=== PATIENT | female | born 1955 | race Caucasian/White ===

== ENCOUNTER 2021-02-05 19:37 | Emergency (ER) | payer BC ==
[2021-02-05] MEDS ORDERED: oxyCODONE ER 10 MG TAB.ER PO ONE (22:05)
[2021-02-05 22:35] LABS: POTASSIUM,K 4.2 mmol/L (3.5-5.1)
--- NOTE | 2021-02-05 23:13 | CR ---
INDICATION: Fall earlier today. COMPARISON: None. TECHNIQUE: PA chest and right ribs, 4 images. FINDINGS: No focal consolidation, pleural effusion, or pneumothorax. Calcified granuloma right midlung. Normal heart size and pulmonary vascularity. Old left rib fractures. No displaced rib fracture identified. IMPRESSION: 1. No acute cardiopulmonary findings. 2. No displaced rib fracture identified. Dictated by Afsaneh Boogie MD @ 02/05/2021 11:11:22 PM (Electronically Signed)
[2021-02-05] MEDS ORDERED: Lidocaine 5% 700 MG Patch TRDERM ONE (23:18)
[2021-02-05] MEDS ORDERED: Cephalexin 500 MG Cap PO STA (23:18)
--- NOTE | 2021-02-05 23:21 | EDM.PDOC ---
ED HPI GENERAL MEDICAL PROBLEM - General Chief Complaint: General Stated Complaint: FALL, RT SIDE KIDNEY PAIN, RECENT TRANSPLANT Time Seen by Provider: 02/05/21 21:19 - History of Present Illness INITIAL COMMENTS - FREE TEXT/NARRATIVE: CHIEF COMPLAINT(S): Fall HISTORY OF PRESENT ILLNESS: This is a 64-year-old woman with a past medical history of CKD status post renal transplant who comes to the emergency department with a chief complaint of fall. The patient states that prior to arrival she fell and hit the right side of her rib. She states that that is the side where her kidney is. She states that she is currently experiencing 10 out of 10 sharp pain on her right rib area. She denies any chest pain, shortness of breath, or cough. She denies any blood in her urine. She states that this is not exactly where her kidney is located but she is concerned that it may be have injured her kidney. She has not yet tried any pain medication therefore there is no relieving factors. The patient is having increased pain with deep breathing. She denies any recent travel, recent surgery, prior history of DVT or PE. She states this was purely a mechanical fall and denies any preceding symptoms. REVIEW OF SYSTEMS: Constitutional: Denies fever, chills. Eyes: Denies eye pain Ears, Nose, Mouth, & Throat: Denies earache Cardiovascular: Positive for right-sided chest pain Respiratory: Denies shortness of breath Gastrointestinal: Denies Nausea, vomiting, diarrhea, hematochezia. Genitourinary: Denies hematuria, dysuria Skin:Denies a rash MSK: Denies joint pain Neurological: Denies blurred vision Psychiatric: Denies depression PAST MEDICAL HISTORY: As per history of present illness and as reviewed below otherwise noncontributory. SURGICAL HISTORY: As per history of present illness and as reviewed below otherwise noncontributory. SOCIAL HISTORY: As per history of present illness and as reviewed below otherwise noncontributory. FAMILY HISTORY: As per history of present illness and as reviewed below otherwise noncontributory. EXAMINATION OF ORGAN SYSTEMS/BODY AREAS: Constitutional: Blood pressure is 156/80, heart rate 90, respiratory rate 18 with an oxygen saturation 97% on room air. Temperature 35.7 General: Middle-aged woman who does not appear to be in acute distress Psychiatric: Appropriate mood and affect. Eyes: No scleral icterus or conjunctival erythema ENMT: Moist mucous membranes. No pharyngeal erythema Cardiovascular: Regular, rate, and rhythm. No gallops, murmurs, or rubs. Bilateral upper extremity pulses symmetric and intact. No peripheral edema. No JVD. There is inferior right rib tenderness without any significant deformity or skin changes. No skin tenting. Respiratory: Lungs clear to auscultation bilaterally. No wheezes, rales, or rhonchi. Gastrointestinal: Soft, non-tender, non-distended. Normoactive bowel sounds right lower quadrant kidney can be palpated. This area is nontender. Genitourinary: No suprapubic tenderness Musculoskeletal: Normal range of motion. Skin: No lesions or abrasions. Neurological: Alert, GCS 15 MEDICAL DECISION MAKING AND COURSE IN THE ED WITH INTERPRETATION/REVIEW OF DIAGNOSTIC STUDIES: This is a 65-year-old woman with a past medical history of CKD status post renal transplant who comes to the emergency department with mechanical fall and right lower rib pain. At this time I do believe this is secondary to rib contusion versus fracture. Will obtain a rib x-ray with PA chest. Given her concern about her kidney will obtain CBC, BMP, urinalysis. We will provide the patient with a lidocaine patch and oxycodone for pain relief. We will reevaluate after imaging and work-up. The patient was amenable to this plan DDx: Rib contusion, rib fracture, soft tissue injury The radiological images were viewed by myself along with reading the report from the radiologist. Rib x-ray with PA chest does not reveal any fracture or acute cardiopulmonary process. Laboratory: CBC reveals a mild leukocytosis 11.17 otherwise unremarkable. BMP reveals elevated BUN at 24 and a creatinine of 1.5 which is around the patient's baseline. Urinalysis done revealed positive nitrite with out leukocyte esterase with 2+ bacteria. Interpretation: Positive. No evidence of hematuria. After labs I did discuss the results with the patient. I did discuss symptomatic treatment for her rib contusion at home. She was amenable to discharge at this time and had no further questions. She was given strict return precautions DISPOSITION: The patient was discharged home in stable condition. The patient will follow up with primary care physician in 3 to 5 days CONDITION: Fair PROCEDURES: None FINAL IMPRESSION(S)/DIAGNOSES: 1. Acute right-sided rib contusion Caden Gonzalez M.D. right rib area Pain Score (Numeric/FACES): 10 - Related Data Allergies Allergy/AdvReac Type Severity Reaction Status Date / Time codeine Allergy Unknown Other Verified 02/05/21 20:34 Home Meds: Home Meds LORazepam 1 mg PO TID PRN 07/06/17 [History] Zolpidem Tartrate [Ambien] 10 mg PO BEDTIME PRN 07/06/17 [History] amLODIPine Besylate [Amlodipine Besylate] 10 mg PO DAILY 07/06/17 [History] carvediloL [Coreg] 12.5 mg PO BID 07/06/17 [History] Ondansetron [Zofran ODT] 4 mg PO Q8H PRN #15 tab.dis 12/08/20 [Rx] Entecavir 0.5 mg PO Q2D 12/24/20 [History] Tacrolimus 2.5 mg PO BID 12/24/20 [History] Valganciclovir HCl 450 mg PO DAILY 12/24/20 [History] predniSONE [Prednisone] 5 mg PO DAILY 12/24/20 [History] Levothyroxine [Synthroid] 50 mcg PO ACBREAKFAST 12/25/20 [History] Magnesium Oxide [Magnesium] 400 mg PO BID 12/25/20 [History] Pantoprazole Sodium [Protonix] 40 mg PO ACBREAKFAST 12/25/20 [History] Rosuvastatin [Crestor] 5 mg PO BEDTIME 12/25/20 [History] Sertraline [Zoloft] 50 mg PO DAILY 12/25/20 [History] Sulfamethoxazole/Trimethoprim [Bactrim 400-80 MG] 1 tab PO DAILY 12/25/20 [History] mycophenolate mofetiL [Cellcept] 1,000 mg PO BID 12/25/20 [History] oxyCODONE 10 mg PO Q6H PRN #9 tablet 12/27/20 [Rx] Acetaminophen [Tylenol Extra Strength] 1,000 mg PO Q6HR #56 tablet 02/05/21 [Rx] Lidocaine 5% [Lidoderm 5%] 1 patch TOP DAILY #7 patch 02/05/21 [Rx] cephALEXin [Keflex] 500 mg PO BID #6 cap 02/05/21 [Rx] methocarbamoL [Methocarbamol] 1,500 mg PO TID #42 tablet 02/05/21 [Rx] oxyCODONE HCl [Oxycodone HCL] 10 mg PO Q6H PRN #8 tablet 02/06/21 [Rx] Past Medical History HEENT History: Reports: Impaired Vision, Other (See Below) Other HEENT History: dentures top and bottom Cardiovascular History: Reports: High Cholesterol, Hypertension Respiratory History: Reports: None Gastrointestinal History: Reports: GERD, PUD, Other (See Below) Other Gastrointestinal History: current small bowel obstruction Genitourinary History: Reports: Other (See Below) Other Genitourinary History: kidney transplant - right Musculoskeletal History: Reports: Arthritis, Osteoporosis Neurological History: Reports: None Psychiatric History: Reports: Anxiety, Depression Endocrine/Metabolic History: Reports: Hypothyroidism Insulin Pump Model and Braider Tender: N/A Hematologic History: Reports: None Immunologic History: Reports: Immunosuppression, Solid Organ Transplant Oncologic (Cancer) History: Reports: None Dermatologic History: Reports: None - Infectious Disease History Infectious Disease History: Reports: None - Past Surgical History Head Surgeries/Procedures: Reports: None HEENT Surgical History: Reports: Oral Surgery Cardiovascular Surgical History: Reports: None GI Surgical History: Reports: Colonoscopy, EGD Female Surgical History: Reports: Other (See Below) Other Female Surgeries/Procedures: right kidney Transplant in September 2020 Endocrine Surgical History: Reports: None Musculoskeletal Surgical History: Reports: Other (See Below) Other Musculoskeletal Surgeries/Procedures:: previous rib fracutres - History Comment History Comment: Has had COVID vaccine w/ booster end of Oct 2020 Social & Family History - Family History Family Medical History: No Pertinent Family History - Caffeine Use Caffeine Use: Reports: Coffee, Soda - Recreational Drug Use Recreational Drug Use: No - Living Situation & Occupation Living situation: Reports: Single, Alone Occupation: Unemployed ED ROS GENERAL - Review of Systems Review Of Systems: See Below ED EXAM, GENERAL - Physical Exam Exam: See Below Course - Vital Signs Last Recorded V/S: Last Vital Signs Temp 36.6 C 02/05/21 23:30 Pulse 86 02/05/21 23:30 Resp 18 02/05/21 23:30 BP 148/70 H 02/05/21 23:30 Pulse Ox 95 02/05/21 23:30 - Orders/Labs/Meds Labs: Laboratory Tests 02/05/21 02/05/21 02/05/21 Range/Units 22:00 22:00 22:27 WBC 11.17 H (4.0-11.0) K/uL RBC 4.33 (4.30-5.90) M/uL Hgb 12.0 (12.0-16.0) g/dL Hct 37.4 (36.0-46.0) % MCV 86.4 (80.0-98.0) fL MCH 27.7 (27.0-32.0) pg MCHC 32.1 (31.0-37.0) g/dL RDW Std Deviation 43.6 (28.0-62.0) fl RDW Coeff of Tip 14 (11.0-15.0) % Plt Count 391 (150-400) K/uL MPV 10.20 (7.40-12.00) fL Neut % (Auto) 84.5 H (48.0-80.0) % Lymph % (Auto) 4.5 L (16.0-40.0) % Dillon % (Auto) 9.6 (0.0-15.0) % Eos % (Auto) 1.0 (0.0-7.0) % Baso % (Auto) 0.4 (0.0-1.5) % Neut # (Auto) 9.5 H (1.4-5.7) K/uL Lymph # (Auto) 0.5 L (0.6-2.4) K/uL Dillon # (Auto) 1.1 H (0.0-0.8) K/uL Eos # (Auto) 0.1 (0.0-0.7) K/uL Baso # (Auto) 0.0 (0.0-0.1) K/uL Nucleated RBC % 0.0 /100WBC Nucleated RBCs # 0 K/uL Sodium 138 (136-145) mmol/L Potassium 4.2 (3.5-5.1) mmol/L Chloride 101 (98-107) mmol/L Carbon Dioxide 26.0 (21.0-32.0) mmol/L BUN 24 H (7.0-18.0) mg/dL Creatinine 1.5 H (0.6-1.0) mg/dL Est Cr Clr Drug Dosing 33.15 mL/min Estimated GFR (MDRD) 35.1 ml/min Glucose 143 H (74-106) mg/dL Calcium 8.9 (8.5-10.1) mg/dL Urine Color YELLOW Urine Appearance HAZY Urine pH 6.0 (5.0-8.0) Ur Specific [place] 1.025 (1.001-1.035) Urine Protein NEGATIVE (NEGATIVE) mg/dL Urine Glucose (UA) NEGATIVE (NEGATIVE) mg/dL Urine Ketones NEGATIVE (NEGATIVE) mg/dL Urine Occult Blood NEGATIVE (NEGATIVE) Urine Nitrite POSITIVE H (NEGATIVE) Urine Bilirubin NEGATIVE (NEGATIVE) Urine Urobilinogen 0.2 (<2.0) EU/dL Ur Leukocyte Esterase NEGATIVE (NEGATIVE) Urine RBC 0-2 (0-2/HPF) Urine WBC 1-4 (0-5/HPF) Ur Epithelial Cells OCCASIONAL (NONE-FEW) Urine Bacteria 2+ H (NEGATIVE) Meds: Medications Discontinued Medications Generic Name Dose Route Start Last Admin Trade Name Freq PRN Reason Stop Dose Admin Cephalexin 500 mg 02/05/21 23:18 02/05/21 23:26 Cephalexin 500 Mg Cap PO 02/05/21 23:19 500 mg ONETIME STA Administration Lidocaine 700 mg 02/05/21 23:18 02/05/21 23:26 Lidocaine 5% 700 Mg Patch TRDERM 02/05/21 23:19 700 mg ONETIME ONE Administration Oxycodone HCl 10 mg 02/05/21 22:05 02/05/21 22:31 Oxycodone Er 10 Mg Tab.Er PO 02/05/21 22:06 10 mg ONETIME ONE Administration Departure - Departure Time of Disposition: 23:19 Disposition: Home, Self-Care 01 Condition: Fair Clinical Impression: Contusion of rib, UTI (urinary tract infection) - Discharge Information *PRESCRIPTION DRUG MONITORING PROGRAM REVIEWED*: No *COPY OF PRESCRIPTION DRUG MONITORING REPORT IN PATIENT ADELINA: No Prescriptions: cephALEXin [Keflex] 500 mg PO BID #6 cap Lidocaine 5% [Lidoderm 5%] 1 patch TOP DAILY #7 patch methocarbamoL [Methocarbamol] 1,500 mg PO TID #42 tablet oxyCODONE HCl [Oxycodone HCL] 10 mg PO Q6H PRN #8 tablet PRN Reason: Pain (Severe 7-10) Acetaminophen [Tylenol Extra Strength] 1,000 mg PO Q6HR #56 tablet Instructions: Urinary Tract Infection, Adult, [id number], Rib Contusion Referrals: PCP,Not In Area [Primary Care Provider] - Forms: ED Department Discharge Additional Instructions: Your evaluated today on an emergent basis. At this time there was no evidence of any kidney injury. You do have evidence of a urinary tract infection for which we did give you antibiotics. I recommend that you complete an antibiotic course. In addition there was no evidence of any fractures of your ribs however chest x-rays are not 100% accurate for rib fractures. At this time however even if there is a fracture the treatment is the same. I recommend use Tylenol 500 mg to 1000 mg every 6 hours, your home pain medication, the lidocaine patch that we provided and a prescription for lidocaine. I recommend you ice the area 20 minutes 4 times a day and you may alternate with heat. It is important that you use the incentive spirometer to help prevent pneumonia. Please follow-up with your primary care physician in 3 to 5 days. [facility] [address] [place] [address] [place] [address] The patient is informed of any results of their evaluation and diagnostic workup and all questions are answered. They are given discharge instructions and return precautions. The patient is stable for discharge. The patient states they understand and agree with the plan and that they will return if their symptoms get worse or if they have any new concerns. The following information is given to patients seen in the emergency department who are being discharged to home. This information is to outline your options for follow-up care. We provide all patients seen in our emergency department with a follow-up referral. The need for follow-up, as well as the timing and circumstances, are variable depending upon the specifics of your emergency department visit. If you don't have a primary care physician on staff, we will provide you with a referral. We always advise you to contact your personal physician following an emergency department visit to inform them of the circumstance of the visit and for follow-up with them and/or the need for any referrals to a consulting specialist. The emergency department will also refer you to a specialist when appropriate. This referral assures that you have the opportunity for follow-up care with a specialist. All of these measure are taken in an effort to provide you with optimal care, which includes your follow-up. Under all circumstances we always encourage you to contact your private physician who remains a resource for coordinating your care. When calling for follow-up care, please make the office aware that this follow-up is from your recent emergency room visit. If for any reason you are refused follow-up, please contact the [facility] Emergency Department at and asked to speak to the emergency department charge nurse. Sepsis Event Note (ED) - Evaluation Sepsis Screening Result: No Definite Risk
== END 2021-02-05 23:47 | disposition home or self-care (01) ==
LOC: MW.ED 19:37
DX: S20.211A Contusion of right front wall of thorax, initial encounter (principal); N39.0 Urinary tract infection, site not specified; E78.00 Pure hypercholesterolemia, unspecified; I10 Essential (primary) hypertension; K21.9 Gastro-esophageal reflux disease without esophagitis; M19.90 Unspecified osteoarthritis, unspecified site; E03.9 Hypothyroidism, unspecified; Z88.5 Allergy status to narcotic agent; Z79.899 Other long term (current) drug therapy; W19.XXXA Unspecified fall, initial encounter
CPT/HCPCS: 36415; 71101; 80048; 81001; 85025; 87086; 87088; 87186; 99283; A9270